=== PATIENT | female | born 1935 | race Caucasian/White ===

== ENCOUNTER 2017-03-18 12:11 | Inpatient (IN) | payer MEDICAID, MEDICARE ==
[~2017-03-18] VITALS: Ht 160 cm; Wt 65.9 kg
[~2017-03-18 12:11] MED LIST: AMOX1TAB64 PO; ASPI-650 PO; ATOR10TA9 PO; BLACK COHOSH PO; CA C1TAB39 PO; CEPH-368 PO; CHOL4PAC2 PO; FURO-93 PO; FURO20TA3 PO; HYDR-3138 PO; HYDR-3240 PO; HYDR2TAB13 PO; MULT-154 PO; ONDA4TAB10 PO; POTA10TA5 PO; PREG25CA PO; SPIR25TA PO; SPIR25TA3 PO
[2017-03-18] MEDS ORDERED: SODIUM CHLORIDE FLUSH 10ML SYR IVF ONE (12:30)
[2017-03-18 13:02] LABS: ASPARTATE AMINO TRANSFERASE 17 U/L (15-37); BLOOD UREA NITROGEN 19 mg/dL (7-18)
[2017-03-18 13:09] LABS: IS PT STATUS REG ER OR PRE ER? YES
[2017-03-18] MEDS ORDERED: TRAM50TA2 PO (15:10)
[2017-03-18] MEDS ORDERED: SODIUM CHLORIDE FLUSH 10ML SYR IVF PRN (16:00)
[2017-03-18] MEDS ORDERED: ONDANSETRON 2MG/ML, 2ML IVPush PRN (17:00)
[2017-03-18] MEDS ORDERED: POLYETHYLENE GLYCOL 17 GM PACKET PO PRN (17:00)
[2017-03-18] MEDS: ENOXAPARIN 40 MG/0.4 ML SQ SCH (17:00)
[2017-03-18] MEDS ORDERED: ONDANSETRON ODT 4 MG PO PRN (17:00)
[2017-03-18] MEDS ORDERED: LABETALOL 5MG/ML, 20ML IVPush PRN (17:00)
[2017-03-18 17:25] VITALS: BP 156/73
[2017-03-18] MEDS: SODIUM CHLORIDE 0.9% 1,000 ML IV SCH (17:41)
[2017-03-18] MEDS: HYDROcodone/APAP 5/325 TABLET PO PRN ×2 (17:45→22:44)
[2017-03-18 20:00] VITALS: BP 135/68
[2017-03-18] MEDS ORDERED: ASPIRIN 325 MG TABLET PO ONE (20:30)
[2017-03-18] MEDS ORDERED: ASPIRIN 325 MG TABLET PO SCH (20:30)
[2017-03-18] MEDS: ATORVASTATIN 20 MG TABLET PO SCH (21:30)
[2017-03-18 22:56] LABS: DAU SCREEN DISCLAIMER
[2017-03-19] MEDS: SODIUM CHLORIDE 0.9% 1,000 ML IV SCH ×3 (01:47→17:42)
[2017-03-19 02:00] VITALS: BP 142/73
[2017-03-19] MEDS: ASPIRIN 81 MG TABLET EC PO SCH (05:17)
[2017-03-19] MEDS: HYDROcodone/APAP 5/325 TABLET PO PRN ×3 (05:17→21:51)
[2017-03-19 05:38] LABS: ASPARTATE AMINO TRANSFERASE 23 U/L (15-37); BLOOD UREA NITROGEN 18 mg/dL (7-18)
[2017-03-19 07:56] VITALS: BP 134/74
[2017-03-19] MEDS: SENNA/DOCUSATE TABLET PO SCH (08:56)
[2017-03-19 15:23] VITALS: BP 134/72
[2017-03-19] MEDS: ENOXAPARIN 40 MG/0.4 ML SQ SCH (17:42)
[2017-03-19 20:00] VITALS: BP 137/87
[2017-03-19] MEDS ORDERED: DIPHENHYDRAMINE 25 MG CAPSULE ONE (21:48)
[2017-03-19] MEDS: ATORVASTATIN 20 MG TABLET PO SCH (21:51)
[2017-03-19] MEDS ORDERED: DIPHENHYDRAMINE 25 MG CAPSULE PO ONE (22:00)
[2017-03-20 02:00] VITALS: BP 151/76
[2017-03-20] MEDS: SODIUM CHLORIDE 0.9% 1,000 ML IV SCH ×2 (03:39→11:35)
[2017-03-20] MEDS: ASPIRIN 81 MG TABLET EC PO SCH (06:31)
[2017-03-20 06:35] VITALS: BP 149/78
[2017-03-20 07:22] LABS: BLOOD UREA NITROGEN 14 mg/dL (7-18)
[2017-03-20] MEDS: SENNA/DOCUSATE TABLET PO SCH (09:13)
[2017-03-20] MEDS: CHOLECALCIFEROL 1,000 UNIT TABLET PO SCH (09:28)
[2017-03-20] MEDS: HYDROcodone/APAP 5/325 TABLET PO PRN ×2 (11:35→18:50)
[2017-03-20 12:30] VITALS: BP 159/93
[2017-03-20] MEDS: ENOXAPARIN 40 MG/0.4 ML SQ SCH (18:04)
[2017-03-20 20:43] VITALS: BP 182/96
[2017-03-20] MEDS: ATORVASTATIN 20 MG TABLET PO SCH (20:59)
[2017-03-21] MEDS: HYDROcodone/APAP 5/325 TABLET PO PRN ×2 (00:28→09:56)
[2017-03-21 02:15] VITALS: BP 181/86
[2017-03-21 05:08] LABS: BLOOD UREA NITROGEN 19 mg/dL (7-18)
[2017-03-21 07:47] VITALS: BP 159/79
[2017-03-21] MEDS: SENNA/DOCUSATE TABLET PO SCH (09:57)
[2017-03-21] MEDS: ASPIRIN 81 MG TABLET EC PO SCH (09:57)
[2017-03-21] MEDS: CHOLECALCIFEROL 1,000 UNIT TABLET PO SCH (09:57)
[2017-03-21] MEDS ORDERED: ATOR20TA9 PO (12:50)
[2017-03-21] MEDS ORDERED: ASPI-621 PO (12:50)
[2017-03-21] MEDS ORDERED: POLY17PO5 PO (12:50)
[2017-03-21] MEDS ORDERED: CHOL10003 PO (12:50)
[2017-03-21 13:42] VITALS: BP 165/89
[2017-03-23 09:07] LABS: HGB A1C 5.7 %Hb (.)
== END 2017-03-21 15:37 | DRG 292 ==
LOC: ED 15:35 → 4EST 15:36 → ED 16:34
DX: I11.0 Hypertensive heart disease with heart failure (principal); G45.9 Transient cerebral ischemic attack, unspecified; E44.0 Moderate protein-calorie malnutrition; I50.30 Unspecified diastolic (congestive) heart failure; E55.9 Vitamin D deficiency, unspecified; F43.10 Post-traumatic stress disorder, unspecified; G89.29 Other chronic pain; H91.90 Unspecified hearing loss, unspecified ear; I27.2 Other secondary pulmonary hypertension; I77.810 Thoracic aortic ectasia; M54.9 Dorsalgia, unspecified; K58.9 Irritable bowel syndrome, unspecified; Z86.73 Personal history of transient ischemic attack (TIA), and cerebral infarction without residual deficits; I25.2 Old myocardial infarction; Z87.440 Personal history of urinary (tract) infections; Z90.710 Acquired absence of both cervix and uterus; Z90.49 Acquired absence of other specified parts of digestive tract; Z88.5 Allergy status to narcotic agent; Z88.8 Allergy status to other drugs, medicaments and biological substances; Z68.25 Body mass index [BMI] 25.0-25.9, adult
CPT/HCPCS: 36415; 70450; 71010; 80048; 80053; 80061; 80307; 81003; 82040; 82140; 82306; 83036; 83735; 84100; 84439; 84484; 85025; 93005; 93306; 93880; J1650; 92522-GN; J7030; Q0163

== ENCOUNTER 2017-04-16 05:16 | Inpatient (IN) | payer MEDICARE ==
[~2017-04-16] VITALS: Ht 160 cm; Wt 64.2 kg
[~2017-04-16 05:16] MED LIST changes: +ASPI-621 PO; +ATOR20TA9 PO; +CHOL10003 PO; +POLY17PO5 PO; +TRAM50TA2 PO
[2017-04-16] MEDS ORDERED: SODIUM CHLORIDE 0.9% 1,000ML IVBOLUS ONE (06:00)
[2017-04-16] MEDS ORDERED: SODIUM CHLORIDE FLUSH 10ML SYR IVF ONE (06:00)
[2017-04-16] MEDS ORDERED: PHENAZOPYRIDINE 200 MG TABLET PO ONE (06:00)
[2017-04-16] MEDS ORDERED: PHENAZOPYRIDINE 200 MG TABLET ONE (06:13)
[2017-04-16 06:48] LABS: BLOOD UREA NITROGEN 18 mg/dL (7-18)
[2017-04-16] MEDS ORDERED: CEFTRIAXONE 1,000 MG in SODIUM CHLORIDE 0.9% 50 ML IVPB ONE (08:00)
[2017-04-16] MEDS ORDERED: CEFTRIAXONE PMX 1GM/50ML 50 ML IVPB ONE (08:02)
[2017-04-16] MEDS ORDERED: PHENAZOPYRIDINE 100 MG TABLET PO PRN (10:30)
[2017-04-16] MEDS ORDERED: BISACODYL 10 MG SUPP PR PRN (10:30)
[2017-04-16] MEDS ORDERED: DOCUSATE 100 MG CAPSULE PO PRN (10:30)
[2017-04-16] MEDS ORDERED: POLYETHYLENE GLYCOL 17 GM PACKET PO PRN (10:30)
[2017-04-16] MEDS: ENOXAPARIN 40 MG/0.4 ML SQ SCH (11:50)
[2017-04-16] MEDS: CEFTRIAXONE PMX 1GM/50ML 50 ML IV SCH (11:50)
[2017-04-16] MEDS: SODIUM CHLORIDE 0.9% 1,000 ML IV SCH ×2 (11:52→21:00)
[2017-04-16 14:45] VITALS: BP 151/79
[2017-04-16 19:00] VITALS: BP 163/83
[2017-04-16] MEDS ORDERED: ATORVASTATIN 20 MG TABLET PO SCH (21:00)
[2017-04-17 01:32] VITALS: BP 160/85
[2017-04-17] MEDS ORDERED: ASPIRIN 81 MG TABLET EC PO SCH (06:00)
[2017-04-17 06:16] LABS: ASPARTATE AMINO TRANSFERASE 21 U/L (15-37); BLOOD UREA NITROGEN 16 mg/dL (7-18)
[2017-04-17 08:00] VITALS: BP 136/76
[2017-04-17] MEDS ORDERED: CHOLECALCIFEROL 1,000 UNIT TABLET PO SCH (09:00)
[2017-04-17] MEDS: ENOXAPARIN 40 MG/0.4 ML SQ SCH (09:29)
[2017-04-17] MEDS: CEFTRIAXONE PMX 1GM/50ML 50 ML IV SCH (09:29)
[2017-04-17] MEDS ORDERED: CEFD300C37 PO (13:00)
[2017-04-17 14:40] VITALS: BP 166/88
== END 2017-04-17 17:45 | disposition home or self-care (01) | DRG 690 ==
LOC: ED 06:45 → EDIP 08:23 → 3NE 10:05
PROVIDERS: ADMIT Family Medicine; ATTEND Family Medicine
PROC: 0T9B70Z Drainage of Bladder with Drainage Device, Via Natural or Artificial Opening (ICD-10-PCS; principal; 2017-04-16)
DX: N30.91 Cystitis, unspecified with hematuria (principal); I50.32 Chronic diastolic (congestive) heart failure; R47.01 Aphasia; G89.29 Other chronic pain; F43.10 Post-traumatic stress disorder, unspecified; H91.90 Unspecified hearing loss, unspecified ear; I27.2 Other secondary pulmonary hypertension; K58.9 Irritable bowel syndrome, unspecified; M54.9 Dorsalgia, unspecified; E55.9 Vitamin D deficiency, unspecified; R31.0 Gross hematuria; Z86.73 Personal history of transient ischemic attack (TIA), and cerebral infarction without residual deficits; I25.2 Old myocardial infarction; Z87.440 Personal history of urinary (tract) infections; Z90.49 Acquired absence of other specified parts of digestive tract; Z90.710 Acquired absence of both cervix and uterus; Z88.6 Allergy status to analgesic agent; Z88.1 Allergy status to other antibiotic agents; Z88.5 Allergy status to narcotic agent; Z88.2 Allergy status to sulfonamides; Z88.8 Allergy status to other drugs, medicaments and biological substances
CPT/HCPCS: 36415; 80048; 80053; 81001; 82040; 83605; 83735; 84100; 84145; 84443; 85025; 87040; 87077; 87086; 87186; 93970; 99285; J0696; J1650; J7030

== ENCOUNTER 2017-07-26 18:07 | Inpatient (IN) | payer MEDICARE, MEDICAID ==
[~2017-07-26] VITALS: Ht 160 cm; Wt 64.4 kg
[~2017-07-26 18:07] MED LIST changes: +CEFD300C37 PO; -HYDR-3138 PO; +HYDR-3237 PO; -HYDR2TAB13 PO; +HYDR2TAB29 PO
[2017-07-26 18:56] LABS: HEMATOCRIT 43.5 % (34.6-47.8); HEMOGLOBIN 14.4 g/dL (11.7-16.4); WHITE BLOOD COUNT 9.3 x10^3/uL (3.4-10)
[2017-07-26 19:04] LABS: PATH.CAST-FLAG NOT PRESENT; SPERM-FLAG NOT PRESENT; SRC-FLAG NOT PRESENT; XTAL-FLAG NOT PRESENT; YLC-FLAG NOT PRESENT
[2017-07-26 19:06] LABS: BLOOD UREA NITROGEN 21 mg/dL (7-18)
[2017-07-26 19:08] LABS: ASPARTATE AMINO TRANSFERASE 27 U/L (15-37)
[2017-07-26] MEDS ORDERED: CEFTRIAXONE PMX 1GM/50ML 50 ML ONE (20:07)
[2017-07-26] MEDS ORDERED: CEFTRIAXONE PMX 1GM/50ML 50 ML IV ONE (20:30)
[2017-07-26] MEDS ORDERED: SODIUM CHLORIDE 0.9% 1,000 ML IV SCH (22:18)
[2017-07-26] MEDS ORDERED: POLYETHYLENE GLYCOL 17 GM PACKET PO PRN (22:30)
[2017-07-26] MEDS ORDERED: ONDANSETRON 2MG/ML, 2ML IVPush PRN (22:30)
[2017-07-27 00:14] VITALS: BP_SYST 169; BP_SYST 185; BP_DIAS 93; BP_DIAS 99
[2017-07-27] MEDS: HEPARIN 5,000 UNITS/ML, 1ML SQ SCH ×3 (05:48→23:06)
[2017-07-27] MEDS: ASPIRIN 81 MG TABLET EC PO SCH (05:49)
[2017-07-27 07:14] VITALS: BP 171/78
[2017-07-27] MEDS: LACTULOSE 10 GM/15 ML UDC PO SCH ×2 (08:17→19:46)
[2017-07-27] MEDS: CHOLECALCIFEROL 1,000 UNIT TABLET PO SCH (08:17)
[2017-07-27] MEDS: ENALAPRILAT 1.25 MG/ML, 2ML IV PRN (08:21)
[2017-07-27 13:42] VITALS: BP 131/70
[2017-07-27] MEDS: CEFTRIAXONE PMX 1GM/50ML 50 ML IV SCH (19:44)
[2017-07-27] MEDS: ATORVASTATIN 20 MG TABLET PO SCH (19:47)
[2017-07-27 19:56] VITALS: BP 152/82
[2017-07-28 03:59] VITALS: BP 171/89
[2017-07-28] MEDS: ENALAPRILAT 1.25 MG/ML, 2ML IV PRN (04:33)
[2017-07-28] MEDS: ASPIRIN 81 MG TABLET EC PO SCH (05:46)
[2017-07-28] MEDS: HEPARIN 5,000 UNITS/ML, 1ML SQ SCH ×3 (07:00→23:00)
[2017-07-28 07:42] VITALS: BP 171/84
[2017-07-28 08:40] LABS: BLOOD UREA NITROGEN 20 mg/dL (7-18)
[2017-07-28] MEDS: CHOLECALCIFEROL 1,000 UNIT TABLET PO SCH (09:00)
[2017-07-28] MEDS: LACTULOSE 10 GM/15 ML UDC PO SCH ×2 (09:00→19:59)
[2017-07-28 12:58] VITALS: BP 156/85
[2017-07-28] MEDS: CEFTRIAXONE PMX 1GM/50ML 50 ML IV SCH (19:48)
[2017-07-28] MEDS: ATORVASTATIN 20 MG TABLET PO SCH (19:59)
[2017-07-28 20:46] VITALS: BP 146/71
[2017-07-29 03:25] VITALS: BP 160/74
[2017-07-29] MEDS: ASPIRIN 81 MG TABLET EC PO SCH (05:45)
[2017-07-29 08:32] VITALS: BP 181/91
[2017-07-29] MEDS: LACTULOSE 10 GM/15 ML UDC PO SCH (09:00)
[2017-07-29] MEDS: CHOLECALCIFEROL 1,000 UNIT TABLET PO SCH (09:33)
[2017-07-29] MEDS: HEPARIN 5,000 UNITS/ML, 1ML SQ SCH ×3 (09:34→23:25)
[2017-07-29] MEDS: ENALAPRILAT 1.25 MG/ML, 2ML IV PRN (10:19)
[2017-07-29] MEDS: CEFDINIR 300 MG CAPSULE PO SCH ×2 (13:36→20:56)
[2017-07-29] MEDS: LISINOPRIL 5 MG TABLET PO SCH (13:36)
[2017-07-29 13:41] VITALS: BP 149/83
[2017-07-29 20:06] VITALS: BP 155/77
[2017-07-29] MEDS: ATORVASTATIN 20 MG TABLET PO SCH (20:56)
[2017-07-30 04:18] VITALS: BP 169/81
[2017-07-30] MEDS: ASPIRIN 81 MG TABLET EC PO SCH (05:23)
[2017-07-30] MEDS: HEPARIN 5,000 UNITS/ML, 1ML SQ SCH (07:00)
[2017-07-30 07:39] VITALS: BP 145/75
[2017-07-30] MEDS: CEFDINIR 300 MG CAPSULE PO SCH (08:38)
[2017-07-30] MEDS: LISINOPRIL 5 MG TABLET PO SCH (08:39)
[2017-07-30] MEDS: CHOLECALCIFEROL 1,000 UNIT TABLET PO SCH (09:00)
[2017-07-30] MEDS ORDERED: CEFD300C37 PO (11:30)
[2017-07-30] MEDS ORDERED: LISI5TAB7 PO (11:30)
== END 2017-07-30 14:10 | DRG 690 ==
LOC: ED 19:34 → EDIP 21:27 → 3NE 22:16
PROVIDERS: ADMIT Hospitalist; ATTEND Hospitalist
PROC: 0T9B70Z Drainage of Bladder with Drainage Device, Via Natural or Artificial Opening (ICD-10-PCS; principal; 2017-07-26)
DX: N30.00 Acute cystitis without hematuria (principal); E44.0 Moderate protein-calorie malnutrition; I11.0 Hypertensive heart disease with heart failure; I50.32 Chronic diastolic (congestive) heart failure; K59.00 Constipation, unspecified; M54.9 Dorsalgia, unspecified; E55.9 Vitamin D deficiency, unspecified; F43.10 Post-traumatic stress disorder, unspecified; G89.29 Other chronic pain; H91.10 Presbycusis, unspecified ear; I25.10 Atherosclerotic heart disease of native coronary artery without angina pectoris; Z87.440 Personal history of urinary (tract) infections; Z86.73 Personal history of transient ischemic attack (TIA), and cerebral infarction without residual deficits; Z90.710 Acquired absence of both cervix and uterus; Z68.25 Body mass index [BMI] 25.0-25.9, adult; Z90.49 Acquired absence of other specified parts of digestive tract; I25.2 Old myocardial infarction; Z88.2 Allergy status to sulfonamides; Z88.8 Allergy status to other drugs, medicaments and biological substances; Z88.1 Allergy status to other antibiotic agents; Z88.5 Allergy status to narcotic agent; Z79.899 Other long term (current) drug therapy; Z79.82 Long term (current) use of aspirin
CPT/HCPCS: 36415; 74176; 80048; 80053; 81001; 83690; 85025; 87077; 87086; 87186; 93005; 96365; J0696; J1644; J2405; J7030

== ENCOUNTER 2017-10-09 14:22 | Emergency (ER) | payer MEDICARE, MEDICAID ==
[~2017-10-09] VITALS: Ht 160 cm; Wt 61.8 kg
[~2017-10-09 14:22] MED LIST changes: +LISI5TAB7 PO
[2017-10-09 15:07] LABS: HEMOGLOBIN 15.1 g/dL (11.7-16.4); WHITE BLOOD COUNT 7.9 x10^3/uL (3.4-10)
[2017-10-09 15:18] LABS: BLOOD UREA NITROGEN 18 mg/dL (7-18)
[2017-10-09] MEDS ORDERED: ALBUTEROL SULFATE 2.5 MG/3 ML NPPB ONE (16:00)
[2017-10-09] MEDS ORDERED: ONDANSETRON 2MG/ML, 2ML IVPush ONE (16:00)
[2017-10-09] MEDS ORDERED: SODIUM CHLORIDE FLUSH 10ML SYR IVF ONE (16:00)
[2017-10-09] MEDS ORDERED: SODIUM CHLORIDE 0.9% 1,000ML IVBOLUS ONE (16:00)
[2017-10-09] MEDS ORDERED: PHENAZOPYRIDINE 200 MG TABLET PO ONE (16:00)
[2017-10-09] MEDS ORDERED: ACETAMINOPHEN 500 MG TABLET PO ONE (16:05)
[2017-10-09] MEDS ORDERED: CEFTRIAXONE PMX 1GM/50ML 50 ML IV ONE (16:30)
[2017-10-09] MEDS ORDERED: ALBUTEROL SULFATE 2.5 MG/3 ML ONE (16:44)
[2017-10-09] MEDS ORDERED: ONDANSETRON 2MG/ML, 2ML ONE (17:12)
[2017-10-09] MEDS ORDERED: ACETAMINOPHEN 500 MG TABLET ONE (17:12)
[2017-10-09] MEDS ORDERED: CEFTRIAXONE PMX 1GM/50ML 50 ML ONE (17:12)
[2017-10-09] MEDS ORDERED: PHENAZOPYRIDINE 100 MG TABLET ONE (17:12)
[2017-10-09] MEDS ORDERED: KETOROLAC 30 MG/1 ML ONE (17:12)
[2017-10-09 17:38] VITALS: BP 133/79
== END 2017-10-09 18:35 | disposition home or self-care (01) ==
LOC: ED 18:34
DX: N30.00 Acute cystitis without hematuria (principal); I25.2 Old myocardial infarction; Z90.49 Acquired absence of other specified parts of digestive tract; Z90.710 Acquired absence of both cervix and uterus
CPT/HCPCS: 36415; 80048; 81001; 82040; 85025; 87077; 87086; 87186; 96365; 96366; 96375; 99285; J0696; J2405; J7030